=== PATIENT | male | born 1940 | race Caucasian/White ===

== ENCOUNTER 2016-07-08 07:46 | Day surgery (SDC) | payer MEDICARE, BC ==
[~2016-07-08 07:46] MED LIST: PROPOFOL INJ 200 MG/20 ML VIAL IV ONE
[2016-07-08 10:31] VITALS: BP 125/67
--- NOTE | 2016-07-08 12:36 | Operative Report ---
Operative Report DATE OF SURGERY: 07/08/16 Operative Report: The risks, benefits and alternatives of the procedure including risks of bleeding, perforation requiring surgery are explained to the patient detail and informed consent is obtained. Patient is taken back to the endoscopy suite. Propofol medications is administered. Timeout is called. A rectal examination was done which didn't reveal any masses tears or fissures. An Olympus was scope was inserted into the patient's rectum. Keeping the lumen in site at all times the scope was then gradually advanced all the way to the cecum. The cecum was identified by the usual anatomical landmarks of the ileocecal valve as well as the appendiceal office. Photodocumentation obtained. Prep is good. The anastomosis is also visualized. From the anastomosis, the scope was then sequentially pulled back via the rest segments of the colon including the ascending colon, hepatic flexure, transverse colon, splenic flexure, descending colon and finally into the rectosigmoid colon. Retroflexion maneuver is performed. PREOPERATIVE DIAGNOSIS: Personal history of large polyp. Personal history of colorectal cancer. He needs a surveillance. POSTOPERATIVE DIAGNOSIS: Mild inflammation at the anastomosis status post biopsy. Also 3 polyps in the area of the sigmoid portion of the colon that required snare polypectomy. OPERATION: Colonoscopy with snare polypectomy. Colonoscopy with biopsy. SURGEON: LUIS BROWNING ANESTHESIA: LMAC TISSUE REMOVED OR ALTERED: Colon polyps were retrieved. Specimen obtained at the anastomotic site to make sure there is no recurrence. COMPLICATIONS: None. ESTIMATED BLOOD LOSS: none. INTRAOPERATIVE FINDINGS: 3 polyps is noted in the sigmoid. Has to most is grossly appears to be normal; mild inflammation noted. No other diverticulosis , masses, AVMs are noted PROCEDURE: Patient tolerated the procedure well. No immediate postprocedure complications are noted. Patient is discharged in good condition. He does have a 2-3 week follow-up to discuss findings. He is instructed to go to emergency room to any further problems or questions. He'll need a surveillance colonoscopy next year. Date of discharge 07/08/2016. Discharge diet: Regular. Charge activity: Regular.
== END 2016-07-08 10:30 | disposition home or self-care (01) ==
LOC: END 07:46
PROVIDERS: ATTEND Internal Medicine Gastroenterology
PROC: 0DBF8ZX Excision of Right Large Intestine, Via Natural or Artificial Opening Endoscopic, Diagnostic (ICD-10-PCS; principal; 2016-07-08 09:30)
PROC: 0DBN8ZX Excision of Sigmoid Colon, Via Natural or Artificial Opening Endoscopic, Diagnostic (ICD-10-PCS; 2016-07-08 09:30)
DX: D12.5 Benign neoplasm of sigmoid colon (principal); K52.9 Noninfective gastroenteritis and colitis, unspecified; Z85.038 Personal history of other malignant neoplasm of large intestine; F11.21 Opioid dependence, in remission; D64.9 Anemia, unspecified; I51.9 Heart disease, unspecified; Z79.82 Long term (current) use of aspirin; Z79.899 Other long term (current) drug therapy; Z95.1 Presence of aortocoronary bypass graft
CPT/HCPCS: 45380; 45385; 88305 ×2; J2704; 810

== ENCOUNTER → 2016-09-10 | Outpatient (CLI) | payer MEDICARE, BC | LOC: SP 08:44 | PROVIDERS: ATTEND Specialist | DX: M79.661 Pain in right lower leg (principal); M79.89 Other specified soft tissue disorders | CPT/HCPCS: 93971 ==

== ENCOUNTER 2019-07-24 09:03 | Day surgery (SDC) | payer MEDICARE, BC ==
[2019-07-24 10:17] VITALS: BP 110/64
--- NOTE | 2019-07-24 13:16 | Operative Report ---
Operative Report DATE OF SURGERY: 07/24/19 Operative Report: The risks benefits and alternatives of the procedure explained to the patient in detail and informed consent is obtained .A GIF Olympus video scope was inserted into the patient's mouth and hypopharynx ,the esophagus is identified intubated and insufflated, the scope was then advanced through the esophagus stomach and duodenum ,retroflexion maneuver is done ,the esophagus stomach and first and second portions of the duodenum examined PREOPERATIVE DIAGNOSIS: Chronic diarrhea rule out celiac disease. Dyspepsia POSTOPERATIVE DIAGNOSIS: Duodenal erosion. Duodenitis status post biopsy. Gastritis status post biopsy OPERATION: EGD with biopsy SURGEON: LUIS BROWNING ANESTHESIA: LMAC TISSUE REMOVED OR ALTERED: As noted above. COMPLICATIONS: None. ESTIMATED BLOOD LOSS: None. INTRAOPERATIVE FINDINGS: As noted above. PROCEDURE: Patient tolerated the procedure well. No immediate postprocedure complications are noted. Patient is discharged in good condition. Discharge date 07/24/2019. Discharge diet: Regular. Discharge activity: Regular. 2 to 3-week follow-up to discuss findings. Patient is instructed to call the office or proceed to the emergency room should there be any further problems or questions.
== END 2019-07-24 10:17 | disposition home or self-care (01) ==
LOC: END 09:03
PROVIDERS: ATTEND Internal Medicine Gastroenterology
DX: K26.9 Duodenal ulcer, unspecified as acute or chronic, without hemorrhage or perforation (principal); K29.80 Duodenitis without bleeding; K29.50 Unspecified chronic gastritis without bleeding; Z80.0 Family history of malignant neoplasm of digestive organs; Z79.899 Other long term (current) drug therapy; Z79.82 Long term (current) use of aspirin; Z88.0 Allergy status to penicillin; I10 Essential (primary) hypertension; Z95.1 Presence of aortocoronary bypass graft; D64.9 Anemia, unspecified
CPT/HCPCS: 43239; 82962; 88342 ×2; 88305 ×2; 00731; J2704; 731

== ENCOUNTER → 2019-08-02 | Outpatient (CLI) | payer MEDICARE, BC | LOC: LAB 14:13 | PROVIDERS: ATTEND Internal Medicine Gastroenterology | DX: R19.7 Diarrhea, unspecified (principal) | CPT/HCPCS: 36415; 82941 ==

== ENCOUNTER 2020-06-14 07:18 | Day surgery (SDC) | payer MEDICARE, BC ==
--- NOTE | 2020-06-14 13:00 | Operative Report ---
Operative Report DATE OF SURGERY: 06/14/20 Operative Report: The risk, benefits and alternatives of the procedure including the risk of bleeding, perforation requiring surgery have been explained to the patient in detail and informed consent has been obtained. Patient is placed in left, lateral decubital position. Timeout was called. Propofol medication is administered. Rectal examination is done which did not reveal any masses, tears or fissures. An Olympus videoscope was introduced into the patient's rectum. Scope was then carefully advanced all the way to the cecum. The cecum was identified by the usual anatomical landmarks including the ileocecal valve as well as the appendiceal office. Photodocumentation is obtained. Scope was then sequentially pulled back via the various segments of the colon including the ascending colon, hepatic flexure, transverse colon, splenic flexure, descending colon finally in to the rectosigmoid portions of the colon. Retroflexion maneuver is performed. PREOPERATIVE DIAGNOSIS: Change in bowel habits POSTOPERATIVE DIAGNOSIS: Ascending colon; mild inflammation status post biopsy. Anastomotic site appears to be normal. Diverticulosis without any evidence of diverticulitis. Internal hemorrhoids. Several rectal polyps removed via snare polypectomy and retrieved OPERATION: Colonoscopy with snare polypectomy. Colonoscopy with biopsy SURGEON: LUIS BROWNING ANESTHESIA: LMAC TISSUE REMOVED OR ALTERED: As noted above. COMPLICATIONS: None. ESTIMATED BLOOD LOSS: None. INTRAOPERATIVE FINDINGS: As noted above. PROCEDURE: Patient tolerated the procedure well. No immediate postprocedure complications are noted. Patient is discharged in good condition. Discharge date 06/14/2020. Discharge diet: Regular. Discharge activity: Regular. 2 to 3-week follow-up to discuss findings. Patient is instructed to call the office or proceed to the emergency room should there be any further problems or questions. Wait on the pathology. 3 to 5-year surveillance colonoscopy.
[2020-06-14 14:06] VITALS: BP 116/52
== END 2020-06-14 09:45 | disposition home or self-care (01) ==
LOC: END 07:18
PROVIDERS: ATTEND Internal Medicine Gastroenterology
DX: K62.1 Rectal polyp (principal); K64.8 Other hemorrhoids; K57.30 Diverticulosis of large intestine without perforation or abscess without bleeding; K52.9 Noninfective gastroenteritis and colitis, unspecified; Z20.828 Contact with and (suspected) exposure to other viral communicable diseases; Z79.82 Long term (current) use of aspirin; Z79.899 Other long term (current) drug therapy; Z90.49 Acquired absence of other specified parts of digestive tract; Z85.038 Personal history of other malignant neoplasm of large intestine; Z95.1 Presence of aortocoronary bypass graft; I10 Essential (primary) hypertension; Z87.891 Personal history of nicotine dependence; F32.9 Major depressive disorder, single episode, unspecified
CPT/HCPCS: 45380; 45385; 811; 82962; 88305